=== PATIENT | male | born 1990 | race Hispanic/Latino ===

== ENCOUNTER 2021-12-12 12:59 | Emergency (ER) | payer OTHER, SELFPAY ==
[2021-12-12 13:02] VITALS: BP 113/100; PULSE 63; RESP 16; TEMP 36.9; O2SAT 98; BMI 22.8
--- NOTE | 2021-12-12 13:43 | RAD_ITS ---
HISTORY: abdominal pain TECHNIQUE: XR Abdomen Series W/ Chest 1 View. COMPARISON: None. FINDINGS: --Chest: CARDIOMEDIASTINAL BORDERS: Cardiac silhouette within normal limits in size. Mediastinal contour not enlarged. LUNGS: Radiographically clear. PLEURA: No pneumothorax or significant pleural effusion. BONES: Unremarkable. --Abdomen: BOWEL GAS PATTERN: No dilated bowel loops. Moderate stool in the colon. FREE AIR: None seen on upright view. CALCIFICATIONS: No abnormal calcifications observed. BONES: Unremarkable. RAD/Acute Abdomen Inc Chest IMPRESSION: No acute abnormality identified. Moderate stool in the colon. Electronically Signed: Briseyda Matta MD at 15:39 EDT ,
--- NOTE | 2021-12-12 13:44 | EX.ED.DYSGE1 ---
HPI History of Present Illness Chief Complaint: Back Informant: patient Narrative Narrative: Patient presents with 2 complaints. Patient has been having back pain for years or more. 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 He has been doing this again for a week or so. He has been seen his head x-rays. He does not get bowel or bladder dysfunction. Please see below for some details. He says he has had tingling in his feet before but that is only when the back pain is really bad. He is not having that now. It is worse if he sits still or sits for a long time. Too much bending bothers it. Laying down sometimes helps. He has not had any fevers chills or recent infections. No weight loss or gain. No acute trauma other than increased lifting. Patient also states that for the last couple weeks, he does not tolerate food as well. If he eats he has to belch or if he does not belch he will get cramping afterwards. He also has some soft bowel movements but no blood. No incontinence. He can control his bowel movements and predict them they are just soft. He does not feel sick such as fevers chills myalgias sore throat or coughing. He does not drink alcohol. The other my history was obtained through online headlight assembler. PFSH [facility] Medical History no medical history Home Medications esomeprazole magnesium 20 mg capsule,delayed release (Nexium) 20 mg PO DAILY #30 caps 12/12/21 [Rx Last Taken Unknown] naproxen 500 mg tablet 500 mg PO BID #20 tabs 12/12/21 [Rx Last Taken Unknown] Allergy/AdvReac Type Severity Reaction Status Date / Time No Known Allergies Allergy Verified 12/12/21 15:05 Family History no significant family his Surgical History no surgical history Social History Smoking Status: Current every day smoker tobacco type: cigarettes ROS ROS ED Constitutional Constitutional ED: Denies chills, fever(s) or sweats ENT ENT ED: Denies rhinorrhea or sore throat Cardiovascular Cardiovascular: Denies chest pain Respiratory/Chest Respiratory/Chest: Denies cough or dyspnea Gastrointestinal Gastrointestinal: Reports abdominal pain, diarrhea, nausea and other Details: Patient only gets nausea and abdominal cramps if he eats quickly and does not belch. ; Denies constipation, melena or vomiting Genitourinary Genitourinary ED: Denies dysuria or hematuria Musculoskeletal Musculoskeletal: Reports back pain; Denies neck pain Integumentary Denies rash Neurologic Neurologic: Denies headache(s), paresthesias or weakness Endocrine Endocrinology: Denies polydipsia or polyuria Hematologic/Lymphatic Hematologic/Lymphatic: Denies easy bleeding, easy bruising or lymphadenopathy Allergic/Immunologic Allergic/Immunologic ED: Reports urticaria EXAM Physical Exam Const Vital Signs: 12/12/21 13:02 Temperature 98.5 F Temperature Source Temporal Pulse Rate 63 Respiratory Rate 16 Blood Pressure 113/100 H Blood Pressure Mean 104 Pulse Ox 98 Oxygen Delivery Method Room Air Positive well nourished and well developed General Appearance ED: well developed and NAD HEENT Reports moist mucous membranes Eyes General Eye ED: Negative for scleral icterus Neck no lymphadenopathy and no JVD Chest Wall inspection of chest normal and palpation of chest normal Resp normal respiratory effort and clear to auscultation bilaterally Cardio regular rate, regular rhythm and no murmurs GI normal to inspection, nondistended, normoactive bowel sounds, non-tender and non-distended GI Narrative: Abdomen is quite benign at this point Palpation: soft Back/Spine no CVA tenderness Back/Spine Narrative: Patient points to right paraspinal area as the source of most of his pain. Extremity normal to inspection Extremity Narrative: Normal strength. No edema cords. Normal distal pulses. General Extremety ED: Negative for tenderness Neuro oriented x3 Neuro Narrative: Patient has normal distal sensation reflexes and strength. Normal muscular development. Sensorium / Orientation: alert Psych mental status grossly normal Skin no rashes or lesions noted MDM MDM MDM Narrative Medical decision making narrative: Patient's blood work including CBC, electrolytes, liver function test, lipase and his urinalysis are normal. X-ray showed no acute process. There is some mild increased stool. [employer] was then used again. Patient states his pain is markedly improved. His abdomen is benign. I think we can get him home. We will have him follow-up with his primary physician. I will start him on nonsteroidals. Because he has been having a lot of abdominal issues with eating, we will start him on a PPI also. He should return with pain numbness weakness fevers or other concerns. Lab Data Attestation: I reviewed the patient's lab results. Labs: Laboratory Results - last 24 hr 12/12/21 12/12/21 12/12/21 14:30 14:30 14:50 WBC 4.9 RBC 4.90 Hgb 14.9 Hct 44.0 MCV 89.8 MCH 30.4 MCHC 33.9 RDW Std Deviation 42.6 RDW Coeff of Andi 12.9 Plt Count 295 MPV 10.8 Immature Gran % (Auto) 0.000 Neut % (Auto) 45.8 L Lymph % (Auto) 38.7 [place] % (Auto) 5.3 Eos % (Auto) 9.4 H Baso % (Auto) 0.8 Absolute Neuts (auto) 2.2 Absolute Lymphs (auto) 1.89 Nucleated RBC % 0 Sodium 141 Potassium 4.0 Chloride 109 H Carbon Dioxide 26.0 Anion Gap 6 BUN 18 Creatinine 0.90 Estim Creat Clear Calc 104.40 Est GFR (MDRD) Af Amer 127 Est GFR (MDRD) Non-Af 105 BUN/Creatinine Ratio 20.0 Glucose 100 Calcium 9.3 Total Bilirubin 0.30 AST 16 ALT 24 Alkaline Phosphatase 76 Total Protein 7.2 Albumin 4.2 Globulin 3.0 Albumin/Globulin Ratio 1.4 Lipase 157 Urine Color Yellow Urine Clarity Clear Urine pH 6.0 Ur Specific [place] 1.015 Urine Protein Negative Urine Glucose (UA) Normal Urine Ketones Negative Urine Occult Blood Negative Urine Nitrite Negative Urine Bilirubin Negative Urine Urobilinogen Normal Ur Leukocyte Esterase Negative Radiography Diagnostic Testing: Clinical Impression(s) from Imaging Studies Acute Abdomen Series 12/12/21 13:43 IMPRESSION: No acute abnormality identified. Moderate stool in the colon. Electronically Signed: Briseyda Matta MD at 15:39 EDT , Discharge Plan Triage Chief Complaint: Back ED Provider: Mejia Jeronimo Dx/Rx/DC Orders Clinical Impression: Lumbar back pain, Abdominal cramping Instructions: Abdominal Pain, ED Back Pain (Acute or Chronic) Prescriptions: New naproxen 500 mg tablet 500 mg PO BID Qty: 20 0RF esomeprazole magnesium [Nexium] 20 mg capsule,delayed release(DR/EC) 20 mg PO DAILY Qty: 30 0RF Primary Care Provider: NOT,DEFINED Referrals: Shamar Llanos MD [Med Staff - Active Staff] - As soon as possible NOT,DEFINED [Primary Care Provider] - Print Language: Indonesian Disposition Disposition: Home, Self Care
[2021-12-12] MEDS: Ondansetron 4 MG/2 ML Vial IV (14:35)
[2021-12-12] MEDS: Ketorolac 15 MG/ML Vial IV (14:35)
[2021-12-12 14:39] LABS: Absolute Lymphocyte Count 1.89 X10^3/uL (0.83-4.51); Absolute Neutrophil Count 2.2 X10^3/uL (2.0-7.7); Basophil# 0.04 X10^3/uL; Basophil% 0.8 % (0-1); Eosinophil# 0.46 X10^3/uL; Eosinophils% 9.4 % (0-5); Hemoglobin 14.9 g/dL (13.0-16.5); Lymphocyte # 1.89 X10^3/ul (0.83-4.51); Lymphocyte % 38.7 % (19-41); Mean Corp Hgb Conc 33.9 g/dL (32-36); Mean Corpuscular Hgb 30.4 pg (27.0-32.0); Mean Corpuscular Volume 89.8 fL (80-94); Mean Platelet Vol. 10.8 fl (6.2-12.0); Monocyte# 0.26 X10^3/uL; Monocyte% 5.3 % (0-10); NRBC Flagged by Analyzer 0 % (0-5); Neutrophil # 2.23 X10^3/uL (2.7-7.7); Neutrophil % 45.8 % (47-70); Platelet Count 295 K/mm3 (150-450); RBC Distribution Width CV 12.9 % (11.6-14.6); RBC Distribution Width SD 42.6 fl (35.1-43.9); White Blood Count 4.9 K/mm3 (4.4-11.0)
[2021-12-12 14:59] LABS: ALB/GLOB Ratio 1.4 RATIO (0.9-2.4); AST(SGOT) 16 U/L (15-37); Alanine Aminotransfer ALT/SGPT 24 U/L (16-61); Albumin, Serum 4.2 g/dL (3.2-5.0); Alkaline Phosphatase 76 U/L (45-117); Anion Gap 6 (5-15); BUN 18 mg/dL (7-18); Calcium,Total 9.3 mg/dL (8.5-10.1); Chloride 109 mmol/L (98-107); EST Glomerular Filtration Rate 105 mL/min (>60); Est Glom Filt Rate - Afr Amer 127 mL/min (>60); Glucose 100 mg/dL (74-106); Lipase 157 U/L (73-393); Protein, Total 7.2 g/dL (6.4-8.2); Sodium Level 141 mmol/L (136-145)
[2021-12-12 15:01] LABS: Color, Urine Yellow (Yellow); Glucose, Dipstick Normal (Normal); Ketone-Dipstick Negative (Negative); Leukocyte Esterase-Dipstick Negative /ul (Negative); Nitrite-Dipstick Negative (Negative); Occult Blood-Urine Negative /ul (Negative); Protein-Dipstick Negative (Negative); Specific Gravity, Urine 1.015 (1.002-1.030); Urine Bilirubin Dipstick Negative (Negative); Urine Clarity Clear (Clear); Urine Urobilinogen Normal (Normal)
== END 2021-12-12 16:44 | disposition home or self-care (01) ==
PROVIDERS: Emergency Provider Emergency Medicine; Visit Provider Emergency Medicine
DX: M54.50 Low back pain, unspecified (principal); R10.9 Unspecified abdominal pain; F17.210 Nicotine dependence, cigarettes, uncomplicated
CPT/HCPCS: 74022; 80053; 81002; 83690; 85025; 96374; 96375; 99283; A4216; J2405